=== PATIENT | female | born 1950 | race African-American/Black ===

== ENCOUNTER 2017-12-17 16:51 | Emergency (ER) | payer OTHER ==
[~2017-12-17] VITALS: Ht 172.7 cm; Wt 86.2 kg
--- NOTE | ~2017-12-17 | EKG ---
[address] [address] ELECTROCARDIOGRAM REPORT Name: ANNYALFREDA Room #: [facility]#: [id number] Admission: 12/17/17 Attend Phys: Discharge: 12/17/17 Date of : 54 Report #: [id number] THIS REPORT FOR: //name// [facility] ED Test Date: 2017-12-17 Test Time: 17:08:58 Pat Name: ALFREDA MCCORMICK Department: Room: Gender: F Social Work Coordinator: DANAY : 1950 Requested By: Sirisha Green Order Number: [id number] MD: Nestor Greco Measurements Intervals [place] Rate: 90 P: 72 WI: 189 QRS: 77 QRSD: 98 T: 19 QT: 398 QTc: 487 Interpretive Statements Sinus rhythm Probable left atrial enlargement Anteroseptal infarct, old Compared to ECG 11/24/2011 10:13:36 Myocardial infarct finding now present Electronically Signed On 12-17-2017 21:39:26 CDT by Nestor Greco [email or web address] <ELECTRONICALLY SIGNED> By: Nestor Greco MD 12/17/17 2139 07 07 Nestor Greco MD /SHILPA
[~2017-12-17 16:51] MED LIST: ASPIRIN EC81 M1 PO; BACTRIM DS TAB1 EACH PO; CARISOPRODOL 3350 MG PO; CLIMARA PRO PA1 EACH TD; COLACE100 MG PO; DIFLUCAN150 MG PO; DIOVAN40 MG PO; EXFORGE PO; FISH OIL 1,0001 EAC5 PO; HYDROCODON-ACE1 EAC1 PO; IMDUR 30 MG TAB30 M1 PO; KEFLEX500 MG PO; LOPRESSOR 50 MG50 M1 PO; METFORMIN PO; MOBIC15 MG PO; OXYCODONE HCL5 M1 PO; TRIAMCINOLONE A80 G2 TOP; VALIUM5 MG PO; VICTOZA0.6 MG/0.1; VICTOZA0.6 MG/0.1 SQ; ZOFRAN ODT4 MG PO; [UNRECOGNIZED DRUG - OTHER]
[2017-12-17 17:11] LABS: ABSOLUTE NEUTROPHILS 9.1 thou/uL (1.4-8.2); BASOPHILS 0.5 % (0.0-2.0); EOSINOPHILS 0.2 % (0.0-3.0); HEMATOCRIT 40.2 % (37.0-47.0); HEMOGLOBIN 13.7 gm/dL (12.0-15.0); LYMPHOCYTES 18.1 % (24.0-44.0); MCV 79.3 fL (80.0-100.0); MONOCYTES 3.4 % (1.0-8.0); PLATELET COUNT 362 thou/uL (150-400); POLYS 77.8 % (36.0-66.0); RBC 5.07 mil/uL (4.20-5.00); RDW 15.3 % (10.5-14.5); WBC 11.7 thou/uL (4.0-11.0)
[2017-12-17 17:18] LABS: ANION GAP 13 mmol/L (7-16); BUN 16 mg/dL (7-18); CALCIUM 10.5 mg/dL (8.5-10.1); CHLORIDE 106 mmol/L (98-107); CO2 21 mmol/L (21-32); CREATININE 0.8 mg/dL (0.6-1.0); GLUCOSE 177 mg/dL (74-106); POTASSIUM 3.7 mmol/L (3.5-5.1); SODIUM 140 mmol/L (136-145)
[2017-12-17 17:28] LABS: ALBUMIN 4.4 g/dL (3.4-5.0); SGOT 15 U/L (15-37); SGPT 31 U/L (30-65); TOTAL BILIRUBIN 0.6 mg/dL (<0.1-1.0); TROPONIN-I < 0.04 ng/mL (<0.06)
[2017-12-17 18:25] VITALS: BP 179/88
[2017-12-17] MEDS ORDERED: ONDANSETRON HCL4 M2 PO (19:05)
[2017-12-17] MEDS ORDERED: ANTIVERT25 MG PO (19:05)
== END 2017-12-17 19:21 | disposition home or self-care (01) ==
LOC: ER 16:51
PROVIDERS: Nurse Practitioner Family
DX: R42 Dizziness and giddiness (principal); R11.2 Nausea with vomiting, unspecified; R51 Headache; I10 Essential (primary) hypertension; E11.9 Type 2 diabetes mellitus without complications; Z90.89 Acquired absence of other organs; Z88.5 Allergy status to narcotic agent; Z91.040 Latex allergy status

== ENCOUNTER 2021-04-29 05:23 | Inpatient (IN) | payer OTHER ==
[~2021-04-29] VITALS: Ht 170.2 cm; Wt 85.3 kg
--- NOTE | ~2021-04-29 | HC ---
[facility] [place] [address] CONSULTATION Name: ALFREDA MCCORMICK Room #: 351-P [facility] IN M.R.#: [id number] Admission: 04/29/21 Attend Phys: Kingsley Arrington Discharge: Date of : 54 Report #: [id number] THIS REPORT FOR: cc: Chan Oliva Theodore M. DO Khosla, Parveen K. MD ~ DATE OF SERVICE: 04/29/2021 HISTORY OF PRESENT ILLNESS: This is a 71-year-old female patient who was evaluated by me for any neurological etiology for the patient's dizziness. I talked to the patient. I talked to the nurse looking after this patient. I talked to the Emergency Room physician and subsequently, I talked to the patient's on the phone. There is a large number of records, which they have gotten from [facility] and I reviewed that. The history in this patient is that she complained of dizziness. She was also some off balance. She went to [facility] and I reviewed those records and it looks like they did a CT angiogram of the head and neck and that was mostly unremarkable. It is interesting that she came to this hospital in 2018 also and she said she had dizziness at that time and she also has a prior history of dizziness. Further history I get in this patient is that this patient also had some speech difficulty and she also said that she has some speaking difficulty, although she is able to understand things reasonably well. She has gone to Emergency Room yesterday. These symptoms are going on since Tuesday. REVIEW OF SYSTEMS: A 14-point review of system was carried out from the patient herself, from the patient's , from the nurses, and the record. There is some record, which indicates that patient has a history of ulcer, but the both and the patient denies that. She is not complaining of any visual symptoms. She is complaining of some jaw symptoms. She is complaining of some dizziness. She appeared to be pretty emotional. I do not know what her baseline is. She and her confirmed that she has diabetes as well as hypertension. She has a prior history of hysterectomy. She takes medication. One of the medications listed as meloxicam and she does have a history of anxiety. She denies any history of eye, ENT, cardiac, respiratory, GI, , musculoskeletal, constitutional, dermatological, hematological, psychiatric symptoms associated with present symptomatology. PAST MEDICAL HISTORY: Negative for stroke and they deny any cardiac history either. FAMILY HISTORY: Negative for early age stroke. SOCIAL HISTORY: She says she does not drink any alcohol or smoke. PHYSICAL EXAMINATION: Her examination was difficult because she was crying and was not very cooperative and very anxious and she was able to speak, although [facility] [address] [place] [address] CONSULTATION Name: ERIN MCCORMICKULA Walter Room #: 351-P [facility] IN .R.#: [id number] Admission: 04/29/21 Attend Phys: Kingsley Arrington Discharge: Date of : 54 Report #: [id number] she indicates speech is a problem for her. I did not make her walk. She did somewhat poorly on memory testing, but it is difficult to tell because she is crying. Cranial nerve examination was incomplete, but I do not see any marked nystagmus. She moves all 4 extremities. Reflexes are symmetrical. Tone looks symmetrical. There is no meningeal sign. I could not look at the fundus. Cardiac and respiratory examinations appear noncontributory. Blood pressure is 174/71, respirations 15, pulse is 78. LABORATORY DATA: Indicates a normal white count. Her glucose is 242. No edema was noticed. No thyroid mass was noticed. No thyroid mass. No carotid bruit. I reviewed the patient's MRI films myself and it does confirm CVA seen on diffusion weighted images indicating that it is acute or subacute. IMPRESSION: 1. Brainstem cerebrovascular accident 2. It looks like the patient's lab indicated that she is COVID positive. Apparently, her is also COVID positive. RECOMMENDATIONS: 1. This patient should be on dual antiplatelet therapy. I confirmed with the patient's that she is not on any blood thinner at home. I will suggest giving 600 mg of Plavix and 81 mg of aspirin. Emergency Room physician is going to arrange that. I talked to the patient's nurse. She said she has already done the bedside swallow and she has passed. 2. She will need a PT, OT, speech therapy. 3. She will need a regular stroke workup and rehab consult. Other problems will be addressed by hospitalist. Thank you very much for this referral. By: [id number] Fabricio Scanlon MD /nt
[~2021-04-29 05:23] MED LIST changes: +ANTIVERT25 MG PO; +ONDANSETRON HCL4 M2 PO
[2021-04-29 05:45] LABS: BASOPHILS 0.5 % (0.0-2.0); EOSINOPHILS 1.3 % (0.0-3.0); HEMATOCRIT 37.9 % (37.0-47.0); HEMOGLOBIN 12.7 gm/dL (12.0-15.0); LYMPHOCYTES 14.9 % (24.0-44.0); MCH 27.3 pg (26.0-34.0); MCHC 33.6 g/dL (28.0-37.0); MONOCYTES 6.6 % (1.0-8.0); PLATELET COUNT 347 thou/uL (150-400); POLYS 76.7 % (36.0-66.0); RBC 4.67 mil/uL (4.20-5.00); RDW 14.7 % (10.5-14.5); WBC 9.2 thou/uL (4.0-11.0)
[2021-04-29 06:06] LABS: APTT 28.7 Seconds (24.5-32.8); INR 0.96; PROTIME 10.5 Seconds (10.5-12.1)
[2021-04-29 06:07] LABS: CALCIUM 8.9 mg/dL (8.5-10.1); CREATININE 0.9 mg/dL (0.6-1.0); POTASSIUM 3.9 mmol/L (3.5-5.1)
[2021-04-29 06:17] LABS: ALBUMIN 3.8 g/dL (3.4-5.0); TOTAL BILIRUBIN 0.6 mg/dL (0.2-1.0); TOTAL PROTEIN 7.3 g/dL (6.4-8.2)
[2021-04-29 08:09] LABS: URINE BILIRUBIN NEGATIVE (Negative); URINE BLOOD NEGATIVE (Negative); URINE CLARITY CLEAR; URINE COLOR YELLOW; URINE GLUCOSE-RANDOM* 3+ (Negative); URINE KETONES NEGATIVE (Negative); URINE LEUKOCYTES-REFLEX NEGATIVE (Negative); URINE NITRITE-REFLEX NEGATIVE (Negative); URINE PROTEIN (DIPSTICK) NEGATIVE (Negative); URINE UROBILINOGEN 0.2 E.U./dl (0.2-1.0)
[2021-04-29 11:34] VITALS: BP 165/71
--- NOTE | 2021-04-29 11:55 | EKG ---
[address] [place] [address] ELECTROCARDIOGRAM REPORT Name: ERIN MCCORMICKULA Walter Room #: 170-9 ADM IN M.R.#: [id number] Admission: 04/29/21 Attend Phys: Kingsley Arrington Discharge: Date of : 54 Report #: [id number] [facility] ED Test Date: 2021-04-29 Test Time: 05:30:10 Pat Name: ALFREDA MCCORMICK Department: Room: 170 Gender: F Communications Attendant: ANN MARIE PAVON : 1950 Requested By: Michelet Zhang Order Number: [id number] MD: Woody Schafer Measurements Intervals [place] Rate: 82 P: 61 NV: 186 QRS: 68 QRSD: 102 T: 63 QT: 401 QTc: 469 Interpretive Statements Sinus rhythm Nonspecific T abnormalities, lateral leads Compared to ECG 12/17/2017 17:08:58 T-wave abnormality now present Myocardial infarct finding no longer present Electronically Signed On 04-29-2021 11:54:33 CDT by Woody Schafer [email or web address] <ELECTRONICALLY SIGNED> By: Woody Schafer MD, [facility] 04/29/21 1154 9 9 Woody Schafer MD, FACC /EPI
[2021-04-29 12:08] VITALS: BP 154/71
[2021-04-29] MEDS ORDERED: CARVEDILOL25 MG PO (12:32)
[2021-04-29 15:26] VITALS: BP 138/60
--- NOTE | 2021-04-29 17:03 | NUR ---
assumed care of pt on arrival to unit at approx noon. pt alert and oriented, expressive aphasia, in no apparent distress. passed swallow eval done by speech. ataxic gait. up w/ 1 walker and 1 assist. ivf infusing per order. plavix bolus and aspirin initiated after OK'd by speech. sinus on telemetry. calls out appropriately. resting comfortably and watching TV.
[2021-04-29 19:14] VITALS: BP 151/71
[2021-04-29 23:58] VITALS: BP 155/74
[2021-04-30 04:49] VITALS: BP 159/71
--- NOTE | 2021-04-30 06:10 | NUR ---
Patient making some progress towards outcome goals. Vital signs and rhythm stable. COVID positive but is asymptomatic. High fall risks, fall precautions in place. Up x 1 assist, gait ataxic but strong.
[2021-04-30 07:25] VITALS: BP 156/77
[2021-04-30 10:41] LABS: ALBUMIN 3.2 g/dL (3.4-5.0); ANION GAP 14 mmol/L (7-16); BUN 6 mg/dL (7-18); CALCIUM 8.6 mg/dL (8.5-10.1); CHLORIDE 109 mmol/L (98-107); CO2 22 mmol/L (21-32); CREATININE 0.7 mg/dL (0.6-1.0); GLUCOSE 187 mg/dL (74-106); PHOSPHORUS 2.8 mg/dL (2.5-4.9); POTASSIUM 3.3 mmol/L (3.5-5.1); SODIUM 145 mmol/L (136-145)
[2021-04-30 12:45] LABS: CHOLESTEROL 125 mg/dL (<200); HDL CHOLESTEROL 41 mg/dL (>40); LDL CHOLESTEROL 62 mg/dL (<100); TRIGLYCERIDE 110 mg/dL (<150); VLDL 22 mg/dL (<40)
[2021-04-30 15:39] VITALS: BP 182/92
--- NOTE | 2021-04-30 17:02 | NUR ---
AUTHORIZATION FOR ACUTE INPATIENT REHABILITATION WAS SUBMITTED TODAY ON 04/30/21. ANTICIPATED ADMISSION ON 05/01/21. CLINICALS FAXED TO [facility] [facility] AT [phone]. REFERENCE #[id number]. AWAITING AUTHORIZATION AT THIS TIME.
--- NOTE | 2021-04-30 18:24 | NUR ---
assumed care of pt at 0700. pt aox4 slurred speech improved. ataxic gait, up to bsc. low grade temp. hypertensive. calls out appropriately. ivf infusing per order. uneventful on telemetry. wcm.
[2021-04-30 19:16] VITALS: BP 150/72
--- NOTE | 2021-04-30 20:51 | NUR ---
DAUGHTER CALLED CHANGED TO AUTHORIZED CONTACT PER PT REQUEST AND DAUGHTER REQUEAST, HOME ILL WITH COVID.
--- NOTE | 2021-04-30 22:40 | NUR ---
PT SLEEPING IN BED, EASILY AROUSED. IVF INTACT. PT TWO PERSON TRANSFER TO BSC, SHUFFLES FEET AND LEANS TO THE RIGHT AND FORWARD. SLOW TO SPEAK BUT ABLE TO MAKE STATEMENTS SUCCINCT. PT CONCERNED ABOUT BEING A BURDEN ON HER DAUGHTER. PT HAD EMERGENCY CONTACT SWITCHED TO HER DAUGHTER SINCE HOME WITH COVID. BED ALARM ON.
[2021-05-01 04:09] VITALS: BP 170/68
[2021-05-01 07:45] VITALS: BP 163/68
--- NOTE | 2021-05-01 10:42 | NUR ---
INITIAL ASSESSMENT/DISCHARGE NOTE: DARIA reviewed chart and spoke with nursing and attending physician. Pt was admitted from home due to acute CVA. Pt had positive COVID test in the ER and has been placed in Enhanced Isolation. Pt has received the Pfizer COVID vaccination. Pt has been accepted to 5 for inpt acute rehab. Insurance auth obtained today. Pt to remain on 3W and be made inpt rehab status. DARIA spoke with pt via phone. Introduced role of SW. Pt is alert/orientated. Pt states she lives at home with her . Prior to admission, pt was independent with ADLs. No use of DME. No hx of services or post-acute placement. Pt's PCP is Dr. Chan Oliva. SW discussed [facility]'s acceptance and insurance auth. Pt verbalized understanding and is agreeable with plan. Pt asked about her isolation status. SW explained that the physicians will determine when she is able to come out of isolation. Pt is aware that she will be staying on 3W for rehab and is not able to have visitors at this time. Pt requests SW notify her and their dtr. DARIA spoke with pt's spouse, Gaston, via phone to provide update. Gaston is at home with COVID. Gaston is agreeable with plan. DARIA placed call to pt's dtr, Radha ([phone]). Voice mailbox is full. DARIA notified attending physician of insurance auth and requested discharge orders be entered. Rehab CM to follow and assist as needed with discharge planning.
--- NOTE | 2021-05-01 10:54 | NUR ---
RECEIVED CALL FROM NIEVES AT [facility]. Pt APPROVED FOR ACUTE REHAB STARTING TODAY AND GOOD FOR 7 DAYS. WILL PLAN TO ADMIT Pt TO REHAB STATUS TODAY HOWEVER Pt WILL REMAIN ON 3W UNIT UNTIL CLEARED FROM COVID ISOLATION. DISCUSSED W/ CASE MGMT.
[2021-05-01] MEDS ORDERED: CLOPIDOGREL75 MG PO (11:03)
[2021-05-01] MEDS ORDERED: ACETAMINOPHEN325 M1 PO (11:04)
[2021-05-01] MEDS ORDERED: ASPIRIN325 PO (11:04)
[2021-05-01] MEDS ORDERED: LIPITOR40 MG PO (11:04)
[2021-05-01] MEDS ORDERED: HUMALOG100 UNIT/1 SUBQ (11:05)
[2021-05-01 12:07] LABS: ANA INTERPRETATION Negative (Negative)
[2021-05-01 15:44] VITALS: BP 157/70
--- NOTE | 2021-05-01 19:04 | NUR ---
RN ASSUMED PT'S CARE AT 0700-1900PM, PT IS A&0X4, PT IS ON ROOM AIR, PT'S VS ARE STABLE, RN HAS REPORTED TO DR ABOUT PT'S R SIDE GETTING MORE WEAK , PT'S HEAD CT SCAN HAS DONE TO R/O NEW CVA, RN WILL REPORT TO NEXT SHIFT TO KEEP EYE ON PT.
[2021-05-01 19:36] VITALS: BP 152/56
[2021-05-01 20:06] LABS: SYPHILIS AB Non Reactive (Non Reactive)
--- NOTE | 2021-05-01 20:17 | NUR ---
PT IS DC TO REHAB STATUS TODAY, BUT PT STAY IN 3W FOR COVID ISOLATION , RN HAS REPORTED TO NEXT SHIFT.
== END 2021-05-01 20:19 | DRG 64 ==
LOC: ER 05:23 → 3W 11:10 → EROBS 11:10 → 3W 11:57
PROVIDERS: Emergency Medicine; Psychiatry & Neurology Neuromuscular Medicine; ADMIT Hospitalist; ATTEND Hospitalist
DX: I63.81 Other cerebral infarction due to occlusion or stenosis of small artery (principal); U07.1 COVID-19; E66.9 Obesity, unspecified; R47.01 Aphasia; E87.6 Hypokalemia; E78.5 Hyperlipidemia, unspecified; E11.9 Type 2 diabetes mellitus without complications; I10 Essential (primary) hypertension; Z90.710 Acquired absence of both cervix and uterus; Z88.6 Allergy status to analgesic agent; Z91.040 Latex allergy status; Z68.29 Body mass index [BMI] 29.0-29.9, adult; Z79.82 Long term (current) use of aspirin; Z79.899 Other long term (current) drug therapy
CPT/HCPCS: 10879

== ENCOUNTER 2021-05-01 12:14 | Inpatient (IN) | payer OTHER ==
[~2021-05-01] VITALS: Ht 170.2 cm; Wt 81.2 kg
[~2021-05-01 12:14] MED LIST changes: +ACETAMINOPHEN325 M1 PO; +ASPIRIN325 PO; +CARVEDILOL25 MG PO; +CLOPIDOGREL75 MG PO; +HUMALOG100 UNIT/1 SUBQ; +LIPITOR40 MG PO
[2021-05-01 19:30] VITALS: BP 152/56
[2021-05-02 02:36] VITALS: BP 120/50
[2021-05-02 04:30] VITALS: BP 157/64
[2021-05-02 04:40] LABS: HEMATOCRIT 32.2 % (37.0-47.0); HEMOGLOBIN 11.1 gm/dL (12.0-15.0); MCH 27.6 pg (26.0-34.0); MCHC 34.4 g/dL (28.0-37.0); MCV 80.1 fL (80.0-100.0); RBC 4.02 mil/uL (4.20-5.00); RDW 14.3 % (10.5-14.5); WBC 4.5 thou/uL (4.0-11.0)
[2021-05-02 04:41] LABS: CALCIUM 8.6 mg/dL (8.5-10.1); CREATININE 0.7 mg/dL (0.6-1.0); POTASSIUM 3.1 mmol/L (3.5-5.1)
[2021-05-02 06:56] VITALS: BP 138/63
--- NOTE | 2021-05-02 07:37 | NUR ---
PT ALERT & ORIENTED X 4. PT IS ON ROOM AIR AND ENHANCED PRECAUTIONS. PT HAS RIGHT SIDED WEAKNESS AND EXPRESSIVE APHASIA. ASSIST X1. PT WAS D/C AND READMITTED INPATIENT REHAB STATUS AND ADMISSION WAS COMPLETED AND CARE PLAN IS IN PLACE.
[2021-05-02 15:34] VITALS: BP 151/72
--- NOTE | 2021-05-02 19:49 | NUR ---
RN ASSUMED PT'S CARE AT 0700-1900PM, PT IS A&OX4, PT IS WORKING WITH PT/OT TODAY, PT STILL HAS R SIDE WEAKNESS, PT IS HIGH FALL RISK, PT DENIES PAIN AND SOB AT DAY SHIFT, PT IS CONTINUING COVID ISOLATION.
[2021-05-02 20:20] VITALS: BP 169/71
--- NOTE | 2021-05-03 02:21 | NUR ---
ASSUMED CARE OF PT AT 1900. PT IS COVID+ FEMALE HERE FOR REHAB POST CVA. THROUGHOUT THE NIGHT PT RESTED IN ROOM WITH NO COMPLAINTS, VSS. ASSESSED TO BE AOX3, ON ROOM AIR, AND AMBULATES SAFELY TO THE COMMODE X1 WITH A WALKER. EARLY IN THE EVENING ATTEMPTED TO GET ANOTHER IV INTO PT, PREVIOUS IV HAD BEEN REMOVED DURING THE DAY, AND WAS REFUSED. NO IV MEDICATION ON CHART, TOLD PT WE MAY NEED ONE IN AM AND WILL CHECK WITH MD TEAM. TYLENOL GIVEN FOR TEMP OF 99.4, SCHEDULED METOPROLOL FOR HYPERTENSION. PT EXPERIENCED SOME INCONTINENCE ON EXERTION POSSIBLY DUE TO URGENCY. APHASIA SEEMS TO HAVE LESSENED AND IS NOT APPARENT. R SIDED WEAKNESS. WILL CONT TO MONITOR.
[2021-05-03 04:28] VITALS: BP 146/73
[2021-05-03 07:56] VITALS: BP 166/79
[2021-05-03 16:19] VITALS: BP 158/77
--- NOTE | 2021-05-03 18:51 | NUR ---
RN ASSUMED PT'S CARE AT 0700AM, PT IS A&OX4, PT IS ON ROOM AIR , PT DENIES PAIN AND SOB AT DAY SHIFT,PT IS CONTINUING ISOLATION FOR POSITIVE COVID, PT NEEDS HELP TO USE BSC DUE TO WEAKNESS .
[2021-05-03 20:16] VITALS: BP 179/76
[2021-05-04 04:45] VITALS: BP 149/64
--- NOTE | 2021-05-04 05:42 | NUR ---
PT IS ALERT AND ORIENTED X 4. PT IS CURRENTLY ON RA. PT IS UP WITH X1 ASSIST TO BSC. NO C/O OF PAIN OVERNIGHT. VSS. REMAINS IN ISOLATION FOR COVID. WILL CONTINUE TO MONITOR.
[2021-05-04 07:59] VITALS: BP 156/72
[2021-05-04 15:18] VITALS: BP 151/71
--- NOTE | 2021-05-04 16:15 | NUR ---
Tommy visited with maria del carmen via phone call, intro to cm, team meeting and dcp. Prior to [facility] and hospital, she was independent at home. Lives with spouse, They have 2 steps to enter home and then inside the home, 3 sets of 7 stair to different levels of home (21 stairs). No DME, manage own medication. 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 Requiring oxygen here, no home o2 in the past. No hh or rehab in the past. She reported she was tiered since she worked with therapy today. Letting her rest and will cont following as needed for dc needs.
--- NOTE | 2021-05-04 19:30 | NUR ---
RN ASSUMED PT'S CARE AT 0700-1900PM, PT IS A&OX4, PT IS ROOM AIR , PT 'S VS ARE STABLE, PT HAS WORKING WITH PT/OT FOR HER WEAKNESS, PT DENIES PAIN AND SOB AY DAY SHIFT,
[2021-05-04 20:05] VITALS: BP 162/66
--- NOTE | 2021-05-04 23:14 | NUR ---
PT RESTING IN BED, COMPLETE SENTENCES TO REQUEST NEEDS, SLOW SPEECH. JELLO FOR SNACK. UP WITH ONE ASSIST TO BSC. R SIDED WEAKNESS. PT COMPLAINING ABOUT BITING TONGUE ASKED FOR GUAZE FOR MOUTH. NYSTATIN FOR YEAST ON TONGUE. BED ALARM ON.
[2021-05-05 04:11] VITALS: BP 151/66
[2021-05-05 07:10] VITALS: BP 151/60
[2021-05-05 11:15] VITALS: BP 125/49
--- NOTE | 2021-05-05 13:29 | NUR ---
team meeting, recommendation: cont. on 3w covid isolation. not on oxygen today, currently on RA. mid to mod memory. refusing a diet down grade. Re team with anticipated 05/15 home health ( pt, ot, st, nursing). No driving till cleared by MD and no working till cleared MD. Dr Dominguez consult. Possible will need fww at al.
[2021-05-05 13:50] LABS: HEMATOCRIT 33.9 % (37.0-47.0); HEMOGLOBIN 11.2 gm/dL (12.0-15.0); MCH 26.5 pg (26.0-34.0); MCHC 33.2 g/dL (28.0-37.0); MCV 79.7 fL (80.0-100.0); RBC 4.25 mil/uL (4.20-5.00); RDW 14.4 % (10.5-14.5); WBC 5.2 thou/uL (4.0-11.0)
[2021-05-05 13:52] LABS: CALCIUM 8.8 mg/dL (8.5-10.1); CREATININE 0.8 mg/dL (0.6-1.0); POTASSIUM 3.3 mmol/L (3.5-5.1)
[2021-05-05 19:22] VITALS: BP 151/57
--- NOTE | 2021-05-05 19:35 | NUR ---
RN ASSUMED PT'S CARE AT 0700-1900PM, PT IS A&OX4, PT IS ON ROOM AIR, RN HAS REPORTED TO HOSPITAL DR ABOUT PT'S TEMP 100.6 F, PT DENIES SOB AT DAY SHIFT, PT'S TEMP HAS IMPROVED AT AFTERNOON.
--- NOTE | 2021-05-05 20:46 | NUR ---
PT SITTING UP IN BED, WATCHING TV, MOVING ALL EXTREMITIES AND KICKING OFF BLANKETS, GRABBING CUP TO DRINK AND SNACK. BLUNTED AFFECT. VERBALIZING NEEDS, SLOWLY. REMIANS INCONTINENT AT TIMES, BUT CALLS FOR ASSISTANCE TO USE BSC. BED ALARM ON.
[2021-05-06 03:59] VITALS: BP 152/73
[2021-05-06 07:22] VITALS: BP 140/66
--- NOTE | 2021-05-06 07:40 | NUR ---
ASSUMED CARE OF PT AT APPROXIMATELY 0100. PT WITH TEMPERATURE OF 102.8 NOTED AT APPOXIMATELY 0400. TYLENOL ADMINISTERED, TEMP 98.5 UPON REASSESSMENT AT 0600. PT CONTINUES ON ROOM AIR WITH 02 SATS 92-94%
[2021-05-06 15:12] VITALS: BP 126/53
[2021-05-06 15:51] LABS: ABSOLUTE NEUTROPHILS 7.3 thou/uL (1.4-8.2); BASOPHILS 0.3 % (0.0-2.0); EOSINOPHILS 0.1 % (0.0-3.0); HEMATOCRIT 31.5 % (37.0-47.0); HEMOGLOBIN 10.8 gm/dL (12.0-15.0); LYMPHOCYTES 9.9 % (24.0-44.0); MCHC 34.2 g/dL (28.0-37.0); MONOCYTES 5.7 % (1.0-8.0); PLATELET COUNT 264 thou/uL (150-400); RBC 3.99 mil/uL (4.20-5.00); RDW 14.7 % (10.5-14.5); WBC 8.7 thou/uL (4.0-11.0)
[2021-05-06 16:02] LABS: ALBUMIN 2.4 g/dL (3.4-5.0); DIRECT BILIRUBIN 0.1 mg/dL (<0.1-0.2); TOTAL BILIRUBIN 0.3 mg/dL (0.2-1.0); TOTAL PROTEIN 6.5 g/dL (6.4-8.2)
[2021-05-06 19:36] VITALS: BP 122/60
--- NOTE | 2021-05-06 19:44 | NUR ---
RN ASSUMED PT'S CARE AT 0700-1900PM, PT IS A&OX3 ( PERSON, PLACE AND TIME), PT CAN FOLLOW COMMANDS, RN HAS REPORTED TO DR ABOUT PT'S FEVER AND MORE WEAKNESS, NEW ORDER TO CONSULT ID DR, PT STARTS IV ABX AND TREAT COVID MEDICATIONS. ,
--- NOTE | 2021-05-07 02:43 | NUR ---
PROGRESS PT A/O X3 . UP TO CHAIR WITH GB WALKER, AND 2 ASSIST HAS RIGHT SIDE WEAKNESS FROM PREVIOUS CVA. ON 2 LITERS O2 DESATS WITH ACTIVITY HAS A DRY NON PRODUCTIVE COUGH BUT MOSTLY NOTED AFTER DRINKING. FEBRILE AT START OF SHIFT AND TYLENOL GIVEN WITH EFFECT. PT HAS POOR APPETITE AND DAUGHTER SENT IN SOME [employer] FRIES AND A BURGER THAT SHE ATE PART OF. ACCUCHECKS AND SSI CONTINUE. PT REPORTS LOOSE STOOLS THAT SHE IS UNABLE TO CONTROL WHEN SHE COUGHS SOFT UNFORMED BROWN STOOL IN SMALL AMOUNT NOTED. INCONTINENT OF URINE CALLS TO GO TO BSC BUT UNABLE TO HOLD IT UNTIL UP TO COMMODE. IV ANTIBIOTICS ADMINISTERED ORDERED. CONTINUE POC.
[2021-05-07 04:43] VITALS: BP 118/62
[2021-05-07 06:30] LABS: ALBUMIN 2.4 g/dL (3.4-5.0); ANION GAP 12 mmol/L (7-16); BUN 15 mg/dL (7-18); CALCIUM 8.7 mg/dL (8.5-10.1); CHLORIDE 106 mmol/L (98-107); CO2 23 mmol/L (21-32); CREATININE 0.9 mg/dL (0.6-1.0); DIRECT BILIRUBIN < 0.1 mg/dL (<0.1-0.2); GLUCOSE 328 mg/dL (74-106); PHOSPHORUS 3.7 mg/dL (2.5-4.9); POTASSIUM 4.4 mmol/L (3.5-5.1); SGOT 20 U/L (15-37); SGPT 20 U/L (30-65); SODIUM 141 mmol/L (136-145); TOTAL BILIRUBIN 0.2 mg/dL (0.2-1.0); TOTAL PROTEIN 6.9 g/dL (6.4-8.2)
[2021-05-07 07:29] LABS: URINE BILIRUBIN NEGATIVE (Negative); URINE BLOOD TRACE (Negative); URINE CLARITY CLEAR; URINE COLOR YELLOW; URINE GLUCOSE-RANDOM* 2+ (Negative); URINE KETONES 1+ (Negative); URINE LEUKOCYTES-REFLEX NEGATIVE (Negative); URINE NITRITE-REFLEX NEGATIVE (Negative); URINE PROTEIN (DIPSTICK) TRACE (Negative); URINE UROBILINOGEN 0.2 E.U./dl (0.2-1.0)
[2021-05-07 08:15] VITALS: BP 158/85
[2021-05-07 11:52] VITALS: BP 172/84
--- NOTE | 2021-05-07 12:24 | HC ---
[facility] [place] [address] CONSULTATION Name: ALFREDA MCCORMICK Room #: 351-P [facility] IN .#: [id number] Admission: 05/01/21 Attend Phys: Albert Richards MD Discharge: Date of : 54 Report #: [id number] THIS REPORT FOR: cc: Chan Oliva,Kalin Gaspar MD ~ DATE OF SERVICE: 05/06/2021 INFECTIOUS DISEASE CONSULTATION ATTENDING PHYSICIAN: Dr. Richards. REASON FOR EVALUATION: COVID-19 infection. HISTORY OF PRESENT SUBJECTIVE: Chart reviewed. The patient examined. This is a 71-year-old woman with known history of diabetes mellitus, has been complicated by vasculopathy, who was actually on the rehabilitation unit with acute brainstem stroke, subsequently developed some loss of taste and smell, progressive weakness and fevers in excess of 102 degrees, transferred to the medical floor. She was found to be COVID positive back on 04/29/2021. She notes she has had a poor appetite, had not required supplemental oxygen until just recently. Followup chest x-ray yesterday showed ____ mild basilar changes. Currently, she has a low-grade temperature elevation and is on supplemental oxygen 2 liters. ALLERGIES: LISTED TO CODEINE. CURRENT MEDICATIONS: Include ergocalciferol, Nystatin, insulin, aspirin, clopidogrel, meclizine, carvedilol, atorvastatin, insulin lispro, and ondansetron. PAST MEDICAL HISTORY: As described above, diabetes mellitus, vasculopathy, brainstem stroke, and hypertension. SOCIAL HISTORY: Nonsmoker, no ethanol, no illicit drug use. FAMILY HISTORY: Noncontributory. REVIEW OF SYSTEMS: Otherwise, unremarkable. PHYSICAL EXAMINATION: GENERAL: She appears chronically ill and undernourished. She is fairly alert, cooperative, mildly encephalopathic, mild distress. VITAL SIGNS: Temperature 99.2, T-max earlier 102.8, pulse 75, respirations 20, blood pressure 126/53. SKIN: Warm, dry, no rashes. [facility] [address] [place] [address] CONSULTATION Name: ERIN MCCORMICKWALTER Watson Room #: 351-P [facility] IN ..#: [id number] Admission: 05/01/21 Attend Phys: Albert Richards MD Discharge: Date of : 54 Report #: [id number] HEENT: Normocephalic. Extraocular muscles intact. Nasal cannula in place. NECK: Supple. LUNGS: Few scattered coarse breath sounds bilaterally, primarily at the bases. HEART: Regular. I do not appreciate a murmur. ABDOMEN: Soft, nontender. EXTREMITIES: No cyanosis. GENITOURINARY AND RECTAL: Deferred. LABORATORY DATA: Chest x-ray as described above. Electrolytes: Sodium 139, potassium 3.3, chloride 104, bicarbonate is 25, anion gap of 10, BUN and creatinine 13 and 0.8. CBC: White count of 5.2. H and H 11.2 and 33.9, platelets of 241. ASSESSMENT AND PLAN: COVID-19 infection, complicated by pneumonitis and respiratory failure with fevers, may be indicative of another infection ____ bacterial, can exclude a urinary tract infection. We will check blood and urine cultures, liver function tests, and empiric therapy with cefepime directed therapy with remdesivir, dexamethasone, and vitamins. She remains quite tenuous. Continue to monitor expectantly. <ELECTRONICALLY SIGNED> By: Kalin Nickerson MD 05/07/21 1224 1422 2100 Kalin Nickerson MD /nt
--- NOTE | 2021-05-07 14:25 | NUR ---
Discussed during los with hospitalist today, she is having covid symptoms. Remains on isolation. Will cont following as needed for dc needs. Reteam for acute rehab.
[2021-05-07 16:56] VITALS: BP 176/79
--- NOTE | 2021-05-07 19:14 | NUR ---
ASSUMED PATIENT CARE AT 0700. A/O X4. UP WALK WITH PT TOLERATED WELL. AFEBRILE. PROGRESSING TOWARDS POC GOALS.
[2021-05-07 20:00] VITALS: BP 170/77
--- NOTE | 2021-05-08 06:31 | NUR ---
PROGRESS PT A/O X4. UP WITH 1 GB WALKER TO BSC. WORKED WITH PT/OT TODAY AND AMBULATED AROUND THE ROOM. PT IS PROGRESSING MOVING A LOT BETTER AND ABLE TO STAND UP WITHOUT ASSISTANCE. VOIDING QS. SMALL BM'S WITH VOIDS SOFT BROWN UNFORMED STOOL. TAKING PILLS 1 AT A TIME AND FOLLOWING HER SWALLOW PRECAUTIONS NO COUGHING OR CHOKING NOTED AFTER MEDS OR DRINKING THIS SHIFT. SKIN C/D/I LUNGS CLEAR BUT DIMINISHED. NO COUGH NOTED SATS WNL ON RA.
[2021-05-08 06:46] LABS: ALBUMIN 2.3 g/dL (3.4-5.0); ANION GAP 13 mmol/L (7-16); BUN 15 mg/dL (7-18); CALCIUM 8.5 mg/dL (8.5-10.1); CHLORIDE 105 mmol/L (98-107); CO2 20 mmol/L (21-32); CREATININE 0.8 mg/dL (0.6-1.0); DIRECT BILIRUBIN < 0.1 mg/dL (<0.1-0.2); GLUCOSE 322 mg/dL (74-106); PHOSPHORUS 2.3 mg/dL (2.5-4.9); POTASSIUM 3.8 mmol/L (3.5-5.1); SGOT 17 U/L (15-37); SGPT 24 U/L (30-65); SODIUM 138 mmol/L (136-145); TOTAL BILIRUBIN 0.2 mg/dL (0.2-1.0); TOTAL PROTEIN 6.3 g/dL (6.4-8.2)
--- NOTE | 2021-05-08 07:56 | NUR ---
Covid + with some symptoms arising. Cont. on enhanced isolation. Cont therapy. Will cont following as needed for dc needs.
[2021-05-08 08:36] VITALS: BP 181/85
--- NOTE | 2021-05-08 11:55 | NUR ---
Nutrition: assess for LOS. Pt unavailable for interview this am. No new wt since admit. Nsg has noted pt with decreased appetite (was 50% or less avg), appears somewhat improved with yesterdays average 66%. BG 200-300's. Albumin 2.3, CO2 20. Dexamethasone, vit pack and other meds reviewed. Assess at mild nutrition risk. Will send Glucerna BID, rec change to CHO controlled diet if meal intake 75% or more and BG sill elvetaed. F/u 05/13.
[2021-05-08 15:07] VITALS: BP 190/89
--- NOTE | 2021-05-08 18:42 | NUR ---
PT HAD UNEASE THIS SHIFT. WAS RESTLESS DUE TO VOCAL NEIGHBOR/PATIENT. PT EVENTUALLY WAS ABLE TO HAVE BRIEF EPISODE OF REST LASTING LESS THAN ONE HOUR THIS AFTERNOON. PRN MED GIVEN FOR ELEVATED BP PER DR MONTESINOS WITH ASSIST IN COMMUNICATION FROM INSTRUCTIONAL TECHNOLOGY DIRECTOR. ST CONTINUED TO ENCOURAGE SUPERVISED PO INTAKE WELL INSTRUCTING STAFF TO PLACE PILLOW BEHIND PT WHEN IN SITTING POSITION TO ALLOW BETTER POSITIONING FOR SWALLOW.
[2021-05-08 19:19] VITALS: BP 173/96
[2021-05-09 00:05] VITALS: BP 200/69
[2021-05-09 03:55] VITALS: BP 138/43
--- NOTE | 2021-05-09 05:12 | NUR ---
Patient making slow progress towards outcome goals. Blood pressure elevated despite one time Clonidine and scheduled Coreg. Orders received for one time Hydralazine, SBP now 130's. High fall risks, fall precautions in place. Swallowing precautions in place.
[2021-05-09 06:14] LABS: HEMATOCRIT 33.9 % (37.0-47.0); HEMOGLOBIN 11.2 gm/dL (12.0-15.0); MCH 25.9 pg (26.0-34.0); MCV 78.6 fL (80.0-100.0); RBC 4.32 mil/uL (4.20-5.00); RDW 14.6 % (10.5-14.5); WBC 11.9 thou/uL (4.0-11.0)
[2021-05-09 07:03] LABS: ALBUMIN 2.5 g/dL (3.4-5.0); CALCIUM 8.8 mg/dL (8.5-10.1); CREATININE 0.7 mg/dL (0.6-1.0); DIRECT BILIRUBIN 0.1 mg/dL (<0.1-0.2); PHOSPHORUS 2.2 mg/dL (2.5-4.9); POTASSIUM 3.1 mmol/L (3.5-5.1); TOTAL BILIRUBIN 0.4 mg/dL (0.2-1.0); TOTAL PROTEIN 6.6 g/dL (6.4-8.2)
[2021-05-09 08:10] VITALS: BP 125/85
--- NOTE | 2021-05-09 17:42 | NUR ---
PROGRESSING TOWARDS POC GOALS. TOLERATED RA.
[2021-05-09 20:56] VITALS: BP 187/78
[2021-05-10 03:38] VITALS: BP 163/80
--- NOTE | 2021-05-10 05:50 | NUR ---
Pt. stated she slept well during the night. Tolerating room air well. Cont. on enhanced precaution, afebrile. Up with assist to commode with use of gaitbelt and walker. Denies any concern. Making progress towards care plan goals.
[2021-05-10 06:26] LABS: ALBUMIN 2.5 g/dL (3.4-5.0); CALCIUM 8.9 mg/dL (8.5-10.1); CREATININE 0.7 mg/dL (0.6-1.0); DIRECT BILIRUBIN 0.1 mg/dL (<0.1-0.2); PHOSPHORUS 3.4 mg/dL (2.6-4.7); POTASSIUM 3.1 mmol/L (3.5-5.1); TOTAL BILIRUBIN 0.4 mg/dL (0.2-1.0); TOTAL PROTEIN 6.5 g/dL (6.4-8.2)
[2021-05-10 07:47] VITALS: BP 157/70
[2021-05-10 16:59] VITALS: BP 175/95
--- NOTE | 2021-05-10 17:37 | NUR ---
PATIENT HAS BEEN ALERT AND ORIENTED X4 DURING THIS SHIFT. PATIENT HAS HAD NO DIFFICULTY EXPRESSING HERSELF OR UNDERSTANDING WHAT IS BEING SAID TO HER. PATIENT TRANSFERS WITH A GAIT BELT AND A WALKER. PATIENT STATES THAT SHE IS GOING TO WORK TOWARDS AMBULATING WITHOUT THE WALKER. PATIENT APPEARS TO HAVE EVEN AND UNLABORED RESPIRATIONS. HER BREATH SOUNDS ARE DIMINISHED. SHE REPORTS NO DIFFICULTY BREATHING WHEN SHE IS LYING DOWN BUT DOES REPORT THAT SHE FINDS HERSELF SHORT OF BREATH WHEN SHE IS UP MOVING AROUND. PATIENT IS STILL ON ROOM AIR AND NOT REQUIRING USE OF OXYGEN. PATIENT HAS HAD A GOOD APPETITE THIS SHIFT AND EATEN 50% OR GREATER FROM EACH OF HER MEALS. PATIENTS IV IS SALINE LOCKED AND IN HER RIGHT FOREARM. PATIENT HAS NO MEDICAL CONCERNS AT THIS TIME. PATIENT WILL CONTINUE TO BE MONITORED.
[2021-05-10 19:00] VITALS: BP 186/72
[2021-05-11 04:18] VITALS: BP 133/68
--- NOTE | 2021-05-11 05:45 | NUR ---
Pt. stated she slept well during the night. Tolerating room air well. Cont. on enhanced precaution ,afebrile. Up with min assist to commode to void. Bed alarm on for safety. Making progress towards care plan goals.
[2021-05-11 06:00] LABS: ALBUMIN 2.6 g/dL (3.4-5.0); CALCIUM 8.8 mg/dL (8.5-10.1); CREATININE 0.7 mg/dL (0.6-1.0); DIRECT BILIRUBIN 0.1 mg/dL (<0.1-0.2); PHOSPHORUS 3.5 mg/dL (2.6-4.7); POTASSIUM 3.4 mmol/L (3.5-5.1); TOTAL BILIRUBIN 0.4 mg/dL (0.2-1.0); TOTAL PROTEIN 6.3 g/dL (6.4-8.2)
[2021-05-11 07:45] VITALS: BP 180/90
--- NOTE | 2021-05-11 10:54 | NUR ---
PT A&OX4, NO COMPLAINTS OF PAIN OR OTHER ISSUE THIS MORNING. PT ABLE TO AMBULATE WITH STANDBY ASSIST PLUS WALKER. PT HAD COUGING EPISODE DURING END OF ADMINISTRATION OF MORING PO PILLS. THIS RN CRUSHED LAST TWO PILLS AND PROVIDED PUDDING ALTERNATIVE PO INTAKE. PT HAD NO ISSUES WITH ADMINISTRATION. THIS RN SPOKE WITH ST, PT HAS A VIDEO SWALLOW SCHEDULED THIS AFTERNOON.
[2021-05-11 15:43] VITALS: BP 178/82
[2021-05-11 19:54] VITALS: BP 164/76
[2021-05-12 04:23] VITALS: BP 164/77
--- NOTE | 2021-05-12 06:02 | NUR ---
Slept well most of the night. Tolerating room air well. Cont. on enhanced precaution , afebrile. Up with SBA to commode.Denies any concern at this time. Making progress towards care plan goals.
[2021-05-12 07:51] VITALS: BP 153/66
--- NOTE | 2021-05-12 13:48 | NUR ---
Team meeting, recommendation: Family has FMLA paper work for MD to complete. COVID enhanced isolation. On RA. Dressing supervison touch. tansferes supervison. 150 Ft fww back and forth in the room contact jackie. Lives in [place] and needs to work on stairs. Refusing mech diet. pockets food. mild to moderated cognition and memory. Needs assist with medication and finances. dc moved 05/21, spouse to work with therapy om 05/20 if she out of covid isolation.
[2021-05-12 17:00] VITALS: BP 148/79
--- NOTE | 2021-05-12 17:53 | NUR ---
PATIENT IS ALERT AND ORIENTED X4. SHE IS UP AMBULATING AROUND HER ROOM WITH A GAIT BELT AND WALKER. PATIENT REPORTS FEELING MUCH BETTER. PATIENT WORKED WITH PT/ OT/ ST THIS SHIFT. PATIENT IT TAKING THE NECESSARY STEPS TOWARDS WORKING TOWARDS DISCHARGE.
[2021-05-12 19:23] VITALS: BP 144/65
[2021-05-13 04:24] VITALS: BP 153/65
--- NOTE | 2021-05-13 06:06 | NUR ---
Slept well during the night. Tolerating room air well. Up with SBA to use commode. Cont. on enhanced precaution,afebrile. Making progress towards care plan goals.
[2021-05-13 07:23] VITALS: BP 154/72
--- NOTE | 2021-05-13 14:49 | NUR ---
Nutrition followup: pt continues on with rehab status. Enhanced precautions lifted. Prior decreased appetite but 50-100% over past few days with glucerna BID. BG 142-318. On steroids and diet has been changed to Carb controlled. Pt wanting more food, stating taste has returned. Steroids also likely increasing appetite. RD will order double veggies on trays, encourage use of glucerna in b/w meals (doesn't need but pt requests continue), and add sugar free jello BID. Hesitate to allow for double meat portions due to CVA and increased sodium provisions. ST continues to monitor for dysphagia. Possible 5# weight decline from admit, follow trends for accuracy. Possible transfer up to [address] [place] [address]. Low risk.
--- NOTE | 2021-05-13 15:29 | NUR ---
Patient and daughter Georgi # [phone] agrees with dcp. Her spouse should be able to able to make therapy if he is cleared from his covid and hopefully she can come out of isolation soon, if her is unable to come for training with therapy someone from the family will be there. When [facility] paperwork is completed call her daughter to come and pick it up.
--- NOTE | 2021-05-13 15:50 | NUR ---
PT IS ON REHAB STATUS, WORKED WITH THERAPY MOST OF THE DAY. ALERT AND ORIENTED X4, ON ROOM AIR. NO SIGNS OF DISTRESS. PT IS BECOMING MORE INDEPENDENT AND GAINING STRENGTH BACK. BLOOD GLUCOSE CONTINUE TO BE HIGH, SLIDING SCALE ADVANCED TO NEXT DOSE. ENHANCED SIOLATION DISCONTINUE PER ID. FALL PRECAUTIONS IN PLACE. DENIES ANY NEEDS, WILL CONTINUE TO MONITOR
[2021-05-13 16:28] VITALS: BP 154/72
[2021-05-13 19:52] VITALS: BP 150/73
[2021-05-14 04:06] VITALS: BP 180/83
--- NOTE | 2021-05-14 05:41 | NUR ---
PT OUT OF ISOLATION. OVERNIGHT VSS, MANAGING BS WITH SHORT AND LONG ACTING INSULIN. 2100 BS WAS 229. DC TO 5N POSSIBLY TODAY. A/0X4, UP TO BSC WITH X1 ASSIST.
[2021-05-14 08:44] VITALS: BP 153/75
--- NOTE | 2021-05-14 11:13 | NUR ---
CARE ASSUMED THIS AM, PT ALERT AND ORIENTED X4. ON ROOM AIR. TRANSFER TO ROOM 511. [facility] ALL BELONGINGS PACKED AND SEND DOWN WITH PT
--- NOTE | 2021-05-14 13:44 | NUR ---
PT UP TO FLOOR APROX 1115. PT A&OX4. PT ON RA. PT INITIALLY REFUSED COVID PCR BUT NOW HAS DECIDED TO LET THIS NURSE TAKE SAMPLE. PT WILLINGLY WORKS WITH THERAPIES. TOLERATING THIN LIQUIDS NO STRAWS, MEDS ONE AT A TIME IN APPLESAUCE. WILL CONTINUE TO MONITOR.
--- NOTE | 2021-05-14 15:39 | NUR ---
Cm delivered her completed FMLA paperwork to her at bedside.
[2021-05-14 16:52] VITALS: BP 145/63
[2021-05-14 19:33] VITALS: BP 131/61
--- NOTE | 2021-05-14 21:50 | NUR ---
ASSUMED CARE OF PT AT 1915. PT IS A&OX4 WITH EXPRESSIVE APHESIA. DENIES PAIN. IS ON ROOM AIR. IS UP WITH STANDBY ASSIST, GB, WALKER. FALL PRECAUTIONS & HOURLY ROUNDING CONTINUED THIS SHIFT. LABS & VITALS REVIEWED. PT IS CURRENTLY IN BED ASLEEP. CALL LIGHT WITHIN REACH. IS ABLE TO REPOSITION SELF IN BED. WILL CONTINUE TO MONITOR.
[2021-05-15 08:00] VITALS: BP 147/79
--- NOTE | 2021-05-15 08:00 | NUR ---
PT UP TO BATHROOM X1 WITH WALKER. PT STATED SHE HAS SOME ABD CRAMPS. PT STATED SHE IS CONSTIPATED AND NEEDS TO HAVE BM. PT DENIES ANY GAS OR NAUSEA AT THIS TIME. PT LUNGS CLEAR, PT VERY PLEASANT THIS AM.
--- NOTE | 2021-05-15 08:30 | NUR ---
PT UP STILL USING BATHROOM AND APPEARS TOO WEAK TO GET BACK TO BED. PT STATED SHE IS CONSTIPATED, PT VOMITING IN TRASH CAN IN BATHROOM, NO COLOR NOTED TO EMESIS, CLEAR MUCOUS. CALLED FOR ASSISTANCE FOR PT TO GET INTO A W/C TO WHEEL BACK TO BED. PT ABLE TO TRANSFER FROM W/C TO BED WITH STAND-BY ASSIST. NOTIFIED EVANS AGUILAR ABOUT EMESIS.
--- NOTE | 2021-05-15 10:30 | NUR ---
AFTER PT RESTED IN BED FROM BATHROOM, PT STATED SHE FELT BETTER AND WAS ABLE TO EAT 100% OF BREAKFAST WITHOUT N/V.
--- NOTE | 2021-05-15 10:47 | PLAN ---
[facility] [place] [address] REHAB UNIT PLAN OF CARE Name: ALFREDA MCCORMICK Room #: 511-P ADM IN M.R.#: [id number] Admission: 05/01/21 Attend Phys: Albert Richards MD Discharge: Date of : 54 Report #: [id number] THIS REPORT FOR: cc: Chan Oliva Theodore M. DO Smithson,Albert Awad MD ~ PROGRESS NOTE/OVERALL PLAN OF CARE HISTORY OF PRESENT ILLNESS: The patient was seen today. She is in no distress. Temperature 97.6, pulse 82, respirations 18, blood pressure 166/79. She is in no distress. She does have some emotional lability, but can be distracted. Pleasant. Facies appeared symmetric. She is able to verbalize her basic wants and needs with some word finding difficulty. Appears to have functional comprehension. Noted to be on a mechanical soft diet with all liquids. She has some right upper extremity coordination difficulties most noted with [id number]. No focal sensory decrease to simultaneous stimulation both upper and lower extremities. Transfers are contact guard assistance and she is ambulating 125 feet min assist with a front-wheeled walker. In occupational therapy, lower body dressing is min assist, upper body dressing is being further assessed. As far as speech, she does have functional cognition and memory. She has moderate expressive deficits. ASSESSMENT: A 71-year-old -Portuguese female with the following problem list: 1. Acute brainstem cerebrovascular accident. 2. Right-sided weakness and decreased coordination. 3. Expressive speech deficits. 4. Tested positive for COVID-19 and is currently in isolation. 5. Non-insulin dependent diabetes mellitus. 6. Hypertension. 7. History of vertigo. 8. Obesity. PLAN: The overall plan of care is based on the pre-admit screen and information garnered from therapy assessments. 1. Estimated length of stay is probably at least 10-14 days. 2. Medical prognosis is reasonably good. 3. Anticipated interventions includes the interdisciplinary acute inpatient rehabilitation program. 4. Anticipated functional outcomes would be for the patient to become modified independent with transfers, mobility, ADLs and communication, so she can return back to the home setting. 5. Discharge destination would be back home where she lives with her in a house. 6. Expected therapy by discipline includes PT, OT and speech 1 [place] [address] REHAB UNIT PLAN OF CARE Name: ALFREDA MCCORMICK Room #: 511-P [facility]#: [id number] Admission: 05/01/21 Attend Phys: Albert Richards MD Discharge: Date of : 54 Report #: [id number] each 5 days a week throughout the duration of the acute inpatient rehabilitation stay. ADDENDUM: The patient's prognosis for significant practical improvement within a reasonable period of time appears good. Given the patient's complex medical condition and risk of further medical complication, rehabilitation services could not be safely provided at a lower level of care such as a detention facility. <ELECTRONICALLY SIGNED> By: Albert Richards MD 05/15/21 [id number] Albert Richards MD /nt
--- NOTE | 2021-05-15 11:13 | NUR ---
ADM COLACE 100MG PO FOR COMPLAINTS OF CONSTIPATION.
--- NOTE | 2021-05-15 13:58 | NUR ---
Cont. to assist with discharge planning needs. dc 05/21/ (pt, ot, st and nursing). Will need assist with medication and finances.
--- NOTE | 2021-05-15 15:34 | NUR ---
PT AWAKE AT THIS TIME AND ASSISTED TO BATHROOM. PT DID TAKE MIRALAX AND LACTULOSE AT THIS TIME X1.
[2021-05-15 19:29] VITALS: BP 143/71
--- NOTE | 2021-05-16 00:25 | NUR ---
PT ASSESSMENT COMPLETED AND VSS. MEDS GIVEN ORDERED AND WELL TOLERATED. FALL PRECAUTIONS IN PLACE. ASST WITH REPOSITION FOR COMFORT. PT SLEEPING WELL AND DENIES NEEDS. WILL CONTINUE TO MONITOR FREQUENTLY. INSULIN GIVEN ORDERED.
[2021-05-16 07:43] VITALS: BP 146/70
--- NOTE | 2021-05-16 17:18 | NUR ---
PT ALERT AND ORIENTED TIMES FOUR WITH FLAT AFFECT. VSS. PT DENIES PAIN/SOA. PT TOLERATES MEDS AND MEALS. PT WORKED WELL WITH PT/OT AND HAS BEEN UP IN THE CHAIR FOR MOST OF THE SHIFT. PT PROGRESSING TOWRADS POC GOALS.
[2021-05-16 19:50] VITALS: BP 156/77
--- NOTE | 2021-05-17 03:35 | NUR ---
PT AMBULATING TO BATHROOM WITH STANDBY ASSIST AND IS TOLERATING FAIR. DENIES PAIN. RESTING COMFORTABLY. NO NEEDS VOICED. CALL LIGHT WITHIN REACH. FREQUENT OBSERVATION.
[2021-05-17 08:22] VITALS: BP 137/63
--- NOTE | 2021-05-17 09:17 | NUR ---
PT STATED SHE IS GOING TO BATHROOM FREQUENTLY AND WANTING TO CHECK URINE FOR UTI. PT DENIES ANY BURNING OR PAIN WITH VOIDING. PT HAS CRACKLES TO LLL, CLEAR RLL. PT STATED HER ABD FEELS BETTER, NO CRAMPING. PT UP WITH WALKER TO BATHROOM STAND-BY ASSIST. PT URINE IS YELLOW AND CLOUDY, NO ODOR NOTED. PT TAKES MEDS IN APPLESAUCE WITHOUT ANY ISSUES.
[2021-05-17 10:23] LABS: URINE BILIRUBIN NEGATIVE (Negative); URINE BLOOD NEGATIVE (Negative); URINE CLARITY CLEAR; URINE COLOR YELLOW; URINE GLUCOSE-RANDOM* NEGATIVE (Negative); URINE KETONES NEGATIVE (Negative); URINE PROTEIN (DIPSTICK) NEGATIVE (Negative); URINE UROBILINOGEN 0.2 E.U./dl (0.2-1.0)
[2021-05-17 10:27] LABS: URINE LEUKOCYTES-REFLEX 1+ (Negative); URINE NITRITE-REFLEX POSITIVE (Negative)
[2021-05-17 10:41] LABS: SQUAMOUS 0-3 Few /LPF (0-3)
[2021-05-17 10:42] LABS: BACTERIA-REFLEX >30 Many /HPF (None Seen); CASTS None Seen /LPF (None Seen); CRYSTALS None Seen /LPF (None Seen); URINE RBC None Seen /HPF (NONE SEEN); URINE WBC-REFLEX >25 Many /HPF (0-5); YEAST-REFLEX Present (None Seen)
[2021-05-17 19:42] VITALS: BP 143/78
--- NOTE | 2021-05-17 23:32 | NUR ---
PT ASSESSMENT COMPLETED AND VSS. MEDS GIVEN ORDERED AND WELL TOLERATED. FALL PRECAUTIONS IN PLACE. ASST WITH REPOSITION FOR COMFORT. POSITIVE UTI. CONTACT [employer]ING [employer] TONY AND PO ANTIBIOTICS STARTED. INSULIN GIVEN ORDERED. SLEEPING WELL. WILL CONTINUE TO MONITOR FREQUENTLY.
[2021-05-18 08:00] VITALS: BP 150/69
--- NOTE | 2021-05-18 16:28 | NUR ---
Pt is A & O x3 not to time. Pt is room air. Pt Vs stable. Pt worked with PT/Ot this shift. Pt uses walker and gait belt for mobility. Pt is x 1 assist. Pt received medications as ordered. Pt is able to make needs known
[2021-05-18 19:42] VITALS: BP 161/92
--- NOTE | 2021-05-19 00:33 | NUR ---
PT ASSESSMENT COMPLETED AND VSS. MEDS GIVEN ORDERED AND WELL TOLERATED WELL INSULIN. UP TO THE BATHROOM WITH ASST - STEADY. SUPPORTIVE DAUGHTER IN TO SEE PT EARLY DURING THE SHIFT. PT DENIES NEEDS. SLEEPING WELL. WILL CONTINUE TO MONITOR FREQUENTLY.
[2021-05-19 08:00] VITALS: BP 130/80
--- NOTE | 2021-05-19 10:13 | NUR ---
PT BACK TO ROOM AFTER WORKING WITH THERAPY. PT DENIES ANY PAIN AT THIS TIME. PT UP WALKING IN ROOM WITH WALKER MOD I. PT HAS STEADY GAIT. PT LUNGS CLEAR NO SOB WITH ACTIVITY. PT TAKES MEDS IN APPLESAUCE WITHOUT ANY ISSUES.
--- NOTE | 2021-05-19 13:34 | NUR ---
Team meeting, recommendation: changing to MOD I with [facility]. Moderate memory and cognition, needs assist with pills and bills. UTI, started on ABX. Possible will dc on insulin and will need training with patient and family. Will need fww, dc 05/21 hh ( pt,ot , st, and nursing).
[2021-05-19 19:08] VITALS: BP 138/80
--- NOTE | 2021-05-19 21:47 | NUR ---
ASSUMED CARE OF PT AT 1915. PT IS A&OX. HASN'T HAD ANY DIFFICULTY EXPRESSING SELF TONIGHT. DENIES PAIN. IS ON ROOM AIR. IS STABLE. IS UP WITH STANDBY ASSIST, KIM, WALKER. FALL PRECAUTIONS & HOURLY ROUNDING CONTINUED THIS SHIFT. LABS & VITALS REVIEWED. CONTINUES ON ACCU CHECKS AC/HS WITH LOW DOSE SLIDDING SCALE INSULIN & BID LONGACTING INSULIN. BS THIS EVENING WAS 364. PT STATED, "I GET SO BORED! I JUST EAT ALL NIGHT LONG". PT RECEIVED 20 UNITS OF LONG-ACTING INUSLIN & REQUESTED [facility]. EDUCATION PROVIDED. PT IS ABLE TO REPOSITION SELF IN BED. CALL LIGHT WITHIN REACH. REQUESTED TO TAKE MEDS EARLY D/T WANTING TO GET TO SLEEP EARLY. PT IS CURRENTLY SLEEPING. CALL LIGHT WITHIN REACH. WILL CONTINUE TO MONITOR.
[2021-05-20 05:49] LABS: ABSOLUTE NEUTROPHILS 10.4 thou/uL (1.4-8.2); BASOPHILS 0.1 % (0.0-2.0); EOSINOPHILS 0.7 % (0.0-3.0); HEMATOCRIT 38.1 % (37.0-47.0); HEMOGLOBIN 12.5 gm/dL (12.0-15.0); LYMPHOCYTES 14.1 % (24.0-44.0); MCH 26.5 pg (26.0-34.0); MCHC 32.7 g/dL (28.0-37.0); MCV 80.8 fL (80.0-100.0); MONOCYTES 7.5 % (1.0-8.0); PLATELET COUNT 598 thou/uL (150-400); POLYS 77.6 % (36.0-66.0); RBC 4.71 mil/uL (4.20-5.00); RDW 15.9 % (10.5-14.5); WBC 13.4 thou/uL (4.0-11.0)
[2021-05-20 06:08] LABS: CALCIUM 9.9 mg/dL (8.5-10.1); CREATININE 0.8 mg/dL (0.6-1.0); MAGNESIUM 1.9 mg/dL (1.8-2.4); POTASSIUM 4.3 mmol/L (3.5-5.1)
[2021-05-20 07:45] VITALS: BP 143/75
--- NOTE | 2021-05-20 09:20 | NUR ---
DISCHARGE PLANNING: PT IS APPROVED FOR CONTINUED STAY THOUGH TODAY PER [employer] WITH DISCHARGE PLANNED FOR TOMORROW. [employer] IS THE DC PLANNING SERVICE THROUGH [employer], AND THEIR PHONE # IS [phone]. PRECERTIFICATION FOR OUTPATIENT SERVICES OR DME IS REQUIRED AND CM CAN CALL [phone] FOR IN NETWORK PROVIDERS, OR CAN GO ONLINE TO [employer]. THIS MESSAGE HAS ALSO BEEN SENT TO THE STILL OPERATOR.
--- NOTE | 2021-05-20 09:54 | NUR ---
ASSUMED CARE AT 0700. PATIENT IS ALERT AND ORIENTED X 4. PATIENT TRINH'S, EXPRESSIVE APHAGIA RESOLVING. PATIENT IS MOD/I IN ROOM. UP IN BED FOR BREAKFAST. FALL AND SAFETY PROTOCOLS IN PLACE. DENIES PAIN AT THIS TIME. CONTINUES TO PROGRESS SLOWLY TOWARDS D/C GOALS. PLAN D/C FOR TOMMARROW. WILL CONTINUE TO MONITER.
--- NOTE | 2021-05-20 12:12 | NUR ---
Nutrition follow up: Transferred back to on 05/14/21. Pt continues with good intakes at meals, with double portions of non-starchy vegetables on trays and SF Jello BID. Also gets glucerna BID per her request. Remains on steroids, likely effecting appetite as well as BS range 97-364. Weight appears stable. Possible D/c tomorrow. Remains low nutrition risk.
[2021-05-20 19:47] VITALS: BP 153/76
--- NOTE | 2021-05-21 03:22 | NUR ---
PATIENT CARE WAS RESUMED AT 1900. SHE IS ALERT AND ORIENTED. ATILIOE AMBULATES WITH WALKER. ABLE TO VERBALIZE CONCERNS. SHE IS CONTINIET OF BOWEL AND BLADDER.SHE TOOK HER MED WITH [facility] AND SHE IS VERY EXCITED ABOUT GOING HOME. SPEECH IS CLEAR, NO APHASIA NOTED. BED IS LOW, LOCKED AND NO ALRM. Q HOURLY ROUNDS ARE ON GOING. SHE DENIES ANY DISCOMFORT.SHE IS ON ABT NO ADVERSE REACTION IS NOTED.SHCHEDULE INSULIN GIVEN PER ORDER
[2021-05-21 08:00] VITALS: BP 141/70
[2021-05-21] MEDS ORDERED: MIRALAX17 GM PO (09:36)
[2021-05-21] MEDS ORDERED: ZINC SULFATE50 MG PO (09:36)
[2021-05-21] MEDS ORDERED: HUMALOG100 UNIT/1 SUBQ (09:36)
[2021-05-21] MEDS ORDERED: COLACE100 MG PO (09:36)
[2021-05-21] MEDS ORDERED: LIPITOR40 MG PO ×2 (09:36→13:01)
[2021-05-21] MEDS ORDERED: CLOPIDOGREL75 MG PO ×2 (09:36→13:01)
[2021-05-21] MEDS ORDERED: BYDUREON B2 MG/0.85 SUBQ ×2 (10:08→12:58)
[2021-05-21 10:19] VITALS: BP 141/70
--- NOTE | 2021-05-21 10:34 | NUR ---
ASSUMED CARE AT 0700. PATIENT IS ALERT AND ORIENTED X4. PATIENT EXPRESSIVE APHAGIA IS RESOLVING. PATIENT POTASH FLAKER ARE EQUAL. LUNGS ARE CLEAR. ABD IS SOFT WITH BSX4. PATIENT IS MOD/I IN ROOM WITH WALKER. UP IN THE CHAIR FOR MEALS. FALL AND SAFETY PROTOCOLS IN PLACE. DENIES PAIN AT THIS TIME. CONTINUES TO PROGRESS TOWARDS D/C GOALS. PLAN D/C LATER TODAY. WILL CONTINUE TO MONITER.
--- NOTE | 2021-05-21 11:13 | NUR ---
[facility] for [facility], faxed order to [facility] physical therapy getting her walker today. [facility]. Family will transport her home today.
[2021-05-21] MEDS ORDERED: VITAMIN D21250 MCG PO (11:22)
[2021-05-21] MEDS ORDERED: Cephalexin PO (11:22)
[2021-05-21] MEDS ORDERED: NORVASC10 MG PO (11:22)
[2021-05-21] MEDS ORDERED: CEPHALEXIN500 MG PO (11:26)
[2021-05-21 11:27] VITALS: BP 141/70
[2021-05-21 11:28] VITALS: BP 141/70
[2021-05-21 11:30] VITALS: BP 141/70
[2021-05-21] MEDS ORDERED: CARVEDILOL25 MG PO (13:01)
[2021-05-21] MEDS ORDERED: MECLIZINE HCL12.5 MG PO (13:01)
[2021-05-21] MEDS ORDERED: FREESTYLE LANC1 EACH MISCELL (13:02)
[2021-05-21] MEDS ORDERED: FREESTYLE FREE1 EAC1 MISCELL (13:02)
--- NOTE | 2021-05-21 13:31 | NUR ---
PT AND SPOUSE GIVEN D/C INSTRUCTIONS. PT & SPOUSE VERBALIZED UNDERSTANDING. PATIENT LEFT UNIT IN GOOD CONDTION WITH ALL OF HER BELONGINGS. PATIENT WAS MOD/I WITH WALKER FOR TRANSFER FROM BED TO W/C AND FROM W/C TO CAR.
== END 2021-05-21 13:00 | disposition home health service (06) | DRG 64 ==
LOC: 3W 21:01
PROVIDERS: Hospitalist; Nurse Practitioner; Nurse Practitioner Family; Specialist; ADMIT Physical Medicine & Rehabilitation; ATTEND Physical Medicine & Rehabilitation
DX: I63.81 Other cerebral infarction due to occlusion or stenosis of small artery (principal); U07.1 COVID-19; J12.82 Pneumonia due to coronavirus disease 2019; J96.90 Respiratory failure, unspecified, unspecified whether with hypoxia or hypercapnia; E46 Unspecified protein-calorie malnutrition; G72.81 Critical illness myopathy; N39.0 Urinary tract infection, site not specified; R47.01 Aphasia; I10 Essential (primary) hypertension; F41.9 Anxiety disorder, unspecified; B96.20 Unspecified Escherichia coli [E. coli] as the cause of diseases classified elsewhere; E87.6 Hypokalemia; K59.00 Constipation, unspecified; E11.9 Type 2 diabetes mellitus without complications; E66.9 Obesity, unspecified; Z68.27 Body mass index [BMI] 27.0-27.9, adult; Z88.6 Allergy status to analgesic agent; Z91.040 Latex allergy status; Z90.710 Acquired absence of both cervix and uterus; Z79.82 Long term (current) use of aspirin; Z79.899 Other long term (current) drug therapy; Z68.28 Body mass index [BMI] 28.0-28.9, adult; R13.10 Dysphagia, unspecified
CPT/HCPCS: 10112; 10779